=== PATIENT | female | born 1965 | race Two or more races ===

== ENCOUNTER 2017-01-05 16:29 | Emergency (ER) | payer MEDICAID, OTHER ==
[2017-01-05 16:39] VITALS: BP 116/61
[2017-01-05] MEDS ORDERED: Ondansetron 4 MG/2 ML SDV IVPUSH ONE (17:03)
--- NOTE | 2017-01-05 17:04 | EDM.PDOC ---
ED HPI GI/ABDOMINAL - General Chief Complaint: Abdominal Pain Stated Complaint: Fever, abdominal pain Time Seen by Provider: 01/05/17 16:45 Source of Information: Reports: Patient, Old records, RN notes reviewed History Limitations: Reports: No limitations - History of Present Illness INITIAL COMMENTS - FREE TEXT/NARRATIVE: 51 year old female presents to the ED today with complaints of epigastric abdominal pain, nausea, vomiting, and diarrhea. She had several episodes of vomiting last evening. She seemed to feel better this morning until she ate some fruit around 4pm at which time she again became nauseated. She feels feverish and said her temp was 100.6 when she checked it. No one else in the family is sick. No urinary symptoms. She had similar symptoms about 1 week ago which resolved. She has a history of of autoimmune hepatitis and is awaiting a liver transplant list. She is doctoring for this in [place]. She said she had a checkup in [place] this past month and that it went well. She was in our ED in September and subsequently transferred to [place] for a stone in her common bile duct. She says she was able to pass the stone without surgery. She says these symptoms are different than her visit in September. She has chronically low platelets related to her cirrhosis. She's required paracentesis in the past but says her ascites is not bad at this time. - Related Data Allergies/ADRs: Allergies Allergy/AdvReac Type Severity Reaction Status Date / Time acetaminophen [From Vicodin] Allergy Lightheaded Verified 01/05/17 16:39 ness hydrocodone bitartrate Allergy Lightheaded Verified 01/05/17 16:39 [From Vicodin] ness Home Meds: Home Meds Metoprolol Succinate [Toprol XL] 50 mg PO ASDIRECTED 11/12/15 [History] Furosemide [Lasix] 60 mg PO DAILY 09/14/16 [History] Pantoprazole Sodium [Protonix] 20 mg PO BID 09/14/16 [History] Spironolactone [Aldactone] 150 mg PO DAILY 09/14/16 [History] Past Medical History Cardiovascular History: Reports: Hypertension Other Gastrointestinal History: Cirrhosis?, Ascites Genitourinary History: Reports: Renal calculus, Other (see below) Other Genitourinary History: Cyst behind kidneys 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 - Past Surgical History HEENT Surgical History: Reports: Tonsillectomy Female Surgical History: Reports: section Social & Family History - Tobacco Use Smoking Status *Q: Never Smoker Second Hand Smoke Exposure: No - Recreational Drug Use Recreational Drug Use: No - Living Situation & Occupation Living situation: Reports: Occupation: unemployed ED ROS GENERAL - Review of Systems Review Of Systems: See Below Constitutional: Reports: fever, chills Respiratory: Reports: No Symptoms. Denies: Shortness of Breath, Cough, Sputum Cardiovascular: Reports: No symptoms. Denies: Blood pressure problem, Edema GI/Abdominal: Reports: Abdominal pain, Diarrhea, Nausea, Vomiting. Denies: Black stool, Bloody stool, Hematochezia : Reports: no symptoms. Denies: dysuria, flank pain, frequency Neurological: Reports: No Symptoms. Denies: Dizziness, Headache ED EXAM, GI/ABD - Physical Exam Exam: See Below Exam Limited By: No limitations General Appearance: alert, WD/WN, no apparent distress Respiratory/Chest: no respiratory distress, lungs clear, normal breath sounds, no accessory muscle use, chest non-tender Cardiovascular: normal peripheral pulses, regular rate, rhythm, no murmur GI/Abdominal: normal bowel sounds, soft, no organomegaly, no distention, tenderness (mild to epigastric region). No: guarding, rebound, rigidity Back Exam: normal inspection, full range of motion. No: CVA tenderness (L), CVA tenderness (R) Neurological: alert, oriented, normal cognition Skin Exam: Warm, Dry, Intact Course - Vital Signs Last Recorded V/S: Last Vital Signs Temp 99.1 F 01/05/17 16:35 Pulse 105 H 01/05/17 16:35 Resp 18 01/05/17 16:35 BP 116/61 01/05/17 16:35 Pulse Ox 96 01/05/17 16:35 - Orders/Labs/Meds Orders: Active Orders 24 hr Category Date Time Status Peripheral IV Care [RC] . DIRECTED Care 01/05/17 17:03 Active CULTURE BLOOD [BC] Stat Lab 01/05/17 21:21 Ordered CULTURE BLOOD [BC] Stat Lab 01/05/17 21:21 Ordered CULTURE URINE [RM] Stat Lab 01/05/17 17:18 Received HYDROmorphone [Dilaudid] Med 01/05/17 21:36 Once 0.5 mg IVPUSH ONETIME ONE Sodium Chloride 0.9% [Normal Saline] 100 ml Med 01/05/17 19:30 Active IV ASDIRECTED Sodium Chloride 0.9% [Saline Flush] Med 01/05/17 17:03 Active 10 ml FLUSH ASDIRECTED PRN cefTRIAXone [Rocephin] 1 gm Med 01/05/17 21:36 Ordered Sodium Chloride 0.9% [Normal Saline] 100 ml IV ONETIME Blood Culture x2 Reflex Set [OM.PC] Stat Oth 01/05/17 21:21 Ordered Peripheral IV Insertion Adult [OM.PC] Stat Oth 01/05/17 17:03 Ordered Medication Orders Sodium Chloride (Normal Saline) 100 mls @ 60 mls/hr IV ASDIRECTED LAURA Sodium Chloride (Saline Flush) 10 ml FLUSH ASDIRECTED PRN PRN Reason: Keep Vein Open Last Admin: 01/05/17 20:23 Dose: 10 ml Admin: 01/05/17 17:13 Dose: 10 ml Labs: Laboratory Tests 01/05/17 01/05/17 01/05/17 Range/Units 17:05 17:05 17:05 WBC 12.98 H (3.98-10.04) K/mm3 RBC 3.34 L (3.98-5.22) M/mm3 Hgb 11.6 (11.2-15.7) gm/L Hct 33.4 L (34.1-44.9) % MCV 100.0 H (79.4-94.8) fl MCH 34.7 H (25.6-32.2) pg MCHC 34.7 (32.2-35.5) g/dl RDW Std Deviation 47.1 H (36.4-46.3) fL Plt Count 45 L (182-369) K/mm3 MPV 11.2 (9.4-12.3) fl Neutrophils % (Manual) 84 H (40-60) % Band Neutrophils % 0 (0-10) % Lymphocytes % (Manual) 9 L (20-40) % Atypical Lymphs % 0 % Monocytes % (Manual) 7 (2-10) % Eosinophils % (Manual) 0 L (0.7-5.8) % Basophils % (Manual) 0 L (0.1-1.2) Toxic Granulation 2+ moderate Platelet Estimate Marked dec Plt Morphology Comment Normal Polychromasia 1+ slight Poikilocytosis 1+ slight Anisocytosis 1+ slight Microcytosis 1+ slight Macrocytosis 1+ slight Tear Drop Cells 1+ slight RBC Morph Comment Abnormal Sodium 129 L (136-145) mEq/L Potassium 4.3 (3.5-5.1) mEq/L Chloride 97 L (98-107) mEq/L Carbon Dioxide 24 (21-32) mEq/L Anion Gap 12.3 (5-15) BUN 14 (7-18) mg/dL Creatinine 1.4 H (0.55-1.02) mg/dL Est Cr Clr Drug Dosing 36.28 mL/min Estimated GFR (MDRD) 40 (>60) mL/min BUN/Creatinine Ratio 10.0 L (14-18) Glucose 391 H (74-106) mg/dL Calcium 8.4 L (8.5-10.1) mg/dL Total Bilirubin 3.5 H (0.2-1.0) mg/dL GGT (5-55) U/L AST 54 H (15-37) U/L ALT 32 (14-59) U/L Alkaline Phosphatase 305 H (46-116) U/L C-Reactive Protein 1.7 H* (<1.0) mg/dL Total Protein 6.9 (6.4-8.2) g/dl Albumin 2.3 L (3.4-5.0) g/dl Globulin 4.6 gm/dL Albumin/Globulin Ratio 0.5 L (1-2) Lipase 348 (73-393) U/L Urine Color (Yellow) Urine Appearance (Clear) Urine pH (5.0-8.0) Ur Specific Prosser (1.005-1.030) Urine Protein (Negative) Urine Glucose (UA) (Negative) Urine Ketones (Negative) Urine Occult Blood (Negative) Urine Nitrite (Negative) Urine Bilirubin (Negative) Urine Urobilinogen (0.2-1.0) Ur Leukocyte Esterase (Negative) Urine RBC (0-5) /hpf Urine WBC (0-5) /hpf Urine WBC Clumps (NOT SEEN) /hpf Ur Epithelial Cells (0-5) /hpf Urine Bacteria (FEW) /hpf Hyaline Casts (0-5) /lpf Urine Mucus (FEW) /hpf 01/05/17 01/05/17 Range/Units 17:05 17:18 WBC (3.98-10.04) K/mm3 RBC (3.98-5.22) M/mm3 Hgb (11.2-15.7) gm/L Hct (34.1-44.9) % MCV (79.4-94.8) fl MCH (25.6-32.2) pg MCHC (32.2-35.5) g/dl RDW Std Deviation (36.4-46.3) fL Plt Count (182-369) K/mm3 MPV (9.4-12.3) fl Neutrophils % (Manual) (40-60) % Band Neutrophils % (0-10) % Lymphocytes % (Manual) (20-40) % Atypical Lymphs % % Monocytes % (Manual) (2-10) % Eosinophils % (Manual) (0.7-5.8) % Basophils % (Manual) (0.1-1.2) Toxic Granulation Platelet Estimate Plt Morphology Comment Polychromasia Poikilocytosis Anisocytosis Microcytosis Macrocytosis Tear Drop Cells RBC Morph Comment Sodium (136-145) mEq/L Potassium (3.5-5.1) mEq/L Chloride (98-107) mEq/L Carbon Dioxide (21-32) mEq/L Anion Gap (5-15) BUN (7-18) mg/dL Creatinine (0.55-1.02) mg/dL Est Cr Clr Drug Dosing mL/min Estimated GFR (MDRD) (>60) mL/min BUN/Creatinine Ratio (14-18) Glucose (74-106) mg/dL Calcium (8.5-10.1) mg/dL Total Bilirubin (0.2-1.0) mg/dL GGT 97 H (5-55) U/L AST (15-37) U/L ALT (14-59) U/L Alkaline Phosphatase (46-116) U/L C-Reactive Protein (<1.0) mg/dL Total Protein (6.4-8.2) g/dl Albumin (3.4-5.0) g/dl Globulin gm/dL Albumin/Globulin Ratio (1-2) Lipase (73-393) U/L Urine Color Yellow (Yellow) Urine Appearance Slt cloudy H (Clear) Urine pH 5.5 (5.0-8.0) Ur Specific Prosser 1.020 (1.005-1.030) Urine Protein Negative (Negative) Urine Glucose (UA) 2+ H (Negative) Urine Ketones Negative (Negative) Urine Occult Blood Trace-lysed H (Negative) Urine Nitrite Negative (Negative) Urine Bilirubin Negative (Negative) Urine Urobilinogen 0.2 (0.2-1.0) Ur Leukocyte Esterase Trace H (Negative) Urine RBC 0-5 (0-5) /hpf Urine WBC 5-10 H (0-5) /hpf Urine WBC Clumps Rare (NOT SEEN) /hpf Ur Epithelial Cells 5-10 H (0-5) /hpf Urine Bacteria Few (FEW) /hpf Hyaline Casts 0-5 (0-5) /lpf Urine Mucus Few (FEW) /hpf Meds: Medications Generic Name Dose Route Start Last Admin Trade Name Freq PRN Reason Stop Dose Admin Sodium Chloride 100 mls @ 60 mls/hr 01/05/17 19:30 Normal Saline IV ASDIRECTED LAURA Sodium Chloride 10 ml 01/05/17 17:03 01/05/17 20:23 Saline Flush FLUSH 10 ml ASDIRECTED PRN Administration Keep Vein Open Discontinued Medications Generic Name Dose Route Start Last Admin Trade Name Freq PRN Reason Stop Dose Admin Diatrizoate Meglum/Diatrizoate Sod 90 ml 01/05/17 19:20 01/05/17 20:23 Gastrografin 37% PO 01/05/17 19:21 90 ml ONETIME ONE Administration Hydromorphone HCl 0.5 mg 01/05/17 18:04 01/05/17 18:19 Dilaudid IVPUSH 01/05/17 18:05 0.5 mg ONETIME ONE Administration Hydromorphone HCl 0.5 mg 01/05/17 19:53 01/05/17 19:57 Dilaudid IVPUSH 01/05/17 19:54 0.5 mg ONETIME ONE Administration Sodium Chloride 500 mls @ 999 mls/hr 01/05/17 17:58 01/05/17 18:18 Normal Saline IV 01/05/17 18:28 999 mls/hr ONETIME ONE Administration Levofloxacin/Dextrose 500 mg/ 100 mls @ 100 mls/hr 01/05/17 21:22 Premix IV 01/05/17 22:21 ONETIME ONE Iopamidol 100 ml 01/05/17 19:20 01/05/17 20:23 Isovue-370 (76%) IVPUSH 01/05/17 19:21 100 ml ONETIME ONE Administration Ondansetron HCl 4 mg 01/05/17 17:03 01/05/17 17:12 Zofran IVPUSH 01/05/17 17:04 4 mg ONETIME ONE Administration - Re-Assessments/Exams Free Text/Narrative Re-Assessment/Exam: CBC reveals elevated WBC at nearly 13,000 with normal differential. CRP is elevated at 1.7. CMP reveals sodium of 129, creatinine 1.4, alk phos 305, bilirubin is 3.5. GGT is elevated at 97. UA is positive for infection. Urine and blood cultures ordered. CT of abdomen/pelvis read by Dr. Gray, impression: 1. Cirrhotic change within the liver 2. Cystic lesion within the head of the pancreas with surrounding low density. Currently appears to represent a cystic mass within the pancreas. Difficult to exclude pancreatic carcinoma. Please see full report Discussed with Dr. Diggs. Concern for ascending cholangitis. Spoke to [facility], where she was admitted in September for the same problem. Hospitalist Dr. Torres accepted care of patient. She will be a direct admit. Patient notified of the above findings and plan of care. She is agreeable to plan. She was offered ambulance transfer however she refused and would prefer to go via private vehicle. Will give 1 gram of Rocephin prior to departure. Departure - Departure Time of Disposition: 21:42 Disposition: DC/Tfer to Acute Hospital 02 Condition: fair Clinical Impression: Pancreatic cyst, Epigastric pain Cirrhosis of liver Qualifiers: Hepatic cirrhosis type: unspecified hepatic cirrhosis Ascites presence: with ascites Qualified Code(s): K74.60 - Unspecified cirrhosis of liver Forms: ED Department Discharge Additional Instructions: Go directly to [facility] You will be a direct admit for Dr. Torres Nothing to eat or drink No driving due to sedating medications given in the ED. - My Orders Last 24 Hours: My Active Orders 01/05/17 17:03 Peripheral IV Care [RC] . DIRECTED Sodium Chloride 0.9% [Saline Flush] 10 ml FLUSH ASDIRECTED PRN Peripheral IV Insertion Adult [OM.PC] Stat 01/05/17 17:18 CULTURE URINE [RM] Stat 01/05/17 19:30 Sodium Chloride 0.9% [Normal Saline] 100 ml IV ASDIRECTED 01/05/17 21:21 CULTURE BLOOD [BC] Stat CULTURE BLOOD [BC] Stat Blood Culture x2 Reflex Set [OM.PC] Stat 01/05/17 21:36 HYDROmorphone [Dilaudid] 0.5 mg IVPUSH ONETIME ONE cefTRIAXone [Rocephin] 1 gm Sodium Chloride 0.9% [Normal Saline] 100 ml IV ONETIME - Assessment/Plan Last 24 Hours: My Active Orders 01/05/17 17:03 Peripheral IV Care [RC] . DIRECTED Sodium Chloride 0.9% [Saline Flush] 10 ml FLUSH ASDIRECTED PRN Peripheral IV Insertion Adult [OM.PC] Stat 01/05/17 17:18 CULTURE URINE [RM] Stat 01/05/17 19:30 Sodium Chloride 0.9% [Normal Saline] 100 ml IV ASDIRECTED 01/05/17 21:21 CULTURE BLOOD [BC] Stat CULTURE BLOOD [BC] Stat Blood Culture x2 Reflex Set [OM.PC] Stat 01/05/17 21:36 HYDROmorphone [Dilaudid] 0.5 mg IVPUSH ONETIME ONE cefTRIAXone [Rocephin] 1 gm Sodium Chloride 0.9% [Normal Saline] 100 ml IV ONETIME
[2017-01-05] MEDS: Sodium Chloride 0.9% 10 ML Syringe FLUSH PRN ×2 (17:13→20:23)
[2017-01-05] MEDS ORDERED: Sodium Chloride 0.9% 500 ML IV ONE (17:58)
[2017-01-05] MEDS ORDERED: HYDROmorphone 0.5 MG/0.5 ML Syringe IVPUSH ONE ×3 (18:04→21:36)
[2017-01-05] MEDS ORDERED: Iopamidol 755 Mg/ML 100 ML Bottle IVPUSH ONE (19:20)
[2017-01-05] MEDS ORDERED: Diatrizoate Meglumine/Diatrizoate Sodium 37% 120 ML Bottle PO ONE (19:20)
[2017-01-05] MEDS ORDERED: Sodium Chloride 0.9% 100 ML IV SCH (19:30)
--- NOTE | 2017-01-05 21:09 | CT ---
CT abdomen and pelvis Technique: Multiple axial sections were obtained from above the dome of the diaphragm inferiorly to the pubic symphysis. Intravenous and oral contrast was utilized. Comparison: Previous CT abdomen and pelvis exams of 09/14/16 and 11/12/15. Findings: Cystic area is seen within the head of the pancreas. This finding measures approximately 2.1 cm. This was previously thought to represent a dilated common bile duct although on current exam this appears more as a cystic pancreatic mass. Vague low density is seen around this area within the pancreatic head. Pancreas is otherwise unremarkable. No pancreatic duct dilatation is seen. Calcified gallstones are seen within the gallbladder. Visualized lung bases are clear. Calcification is identified within the right lobe of the liver which appears stable. Liver is small in size and shows a slightly nodular contour which is suspicious for cirrhosis which is a stable finding. Spleen appears within normal limits. Small hiatal hernia is seen. Cyst identified within the right kidney which measures 5.2 cm in size. No additional abnormality is seen within the kidneys. Aorta shows no aneurysmal dilatation. Small fat-containing umbilical hernia is seen. No pelvic mass or adenopathy is noted. No retroperitoneal adenopathy or mesenteric abnormalities are seen. Contrast-filled small bowel appears slightly prominent in size which may relate to hypertonic effect of the contrast. No free fluid or inflammatory change is appreciated. Slight increased density within the right paracolic gutter is seen which appears stable from prior exam presumably due to scarring. Impression: 1. Cirrhotic change within the liver which is stable from prior exam. 2. Cystic lesion within the head of the pancreas with surrounding low density. As mentioned above, this was felt to represent a dilated CBD on prior CT study but this currently appears to represent a cystic mass within the pancreas. As mentioned on earliest CT study difficult to exclude a pancreatic carcinoma although given that this finding is stable from prior study of 11/12/15 this may represent a low-grade or benign lesion. Continued follow-up recommended in 6 months. Follow-up study should include contrast both IV and oral. 3. Calcified gallstones which are stable from prior exam. 4. Other incidental findings. Nothing acute is definitely appreciated on CT study of the abdomen and pelvis. Diagnostic code #9
[2017-01-05] MEDS ORDERED: Levofloxacin/Dextrose 5%-Water 500 MG in Premix Bag 1 BAG IV ONE (21:22)
[2017-01-05] MEDS ORDERED: cefTRIAXone 1 GM in Sodium Chloride 0.9% 100 ML IV ONE (21:36)
== END 2017-01-05 22:25 ==
LOC: JD.ED 16:29
DX: K86.2 Cyst of pancreas (principal); K74.60 Unspecified cirrhosis of liver; Z88.5 Allergy status to narcotic agent; Z88.8 Allergy status to other drugs, medicaments and biological substances; Z79.899 Other long term (current) drug therapy
CPT/HCPCS: 36415; 74177; 80053; 81001; 82977; 83690; 85025; 86140; 87040; 87086; 96361; 96365; 96375; 96376; 99285; J0696; J1170; J2405; J7030; J7040; J7050; Q9963; Q9967; 87077; 87184; 99284

== ENCOUNTER 2017-05-02 23:30 | Emergency (ER) | payer MEDICAID ==
[2017-05-03] MEDS ORDERED: Ondansetron 4 MG Tab.DIS PO ONE (00:21)
--- NOTE | 2017-05-03 00:26 | EDM.PDOC ---
ED HPI GENERAL MEDICAL PROBLEM - General Chief Complaint: Abdominal Pain Stated Complaint: BLOATING/ON LIVER TRANSPLANT LIST Time Seen by Provider: 05/02/17 23:58 Source of Information: Reports: Patient History Limitations: Reports: No Limitations - History of Present Illness INITIAL COMMENTS - FREE TEXT/NARRATIVE: This is a 51-year-old female. She has a history of liver cirrhosis with ascites. She is on the transplant list and her son is going to be the donor and she anticipates she is going to get a liver transplant in the next several months. She was recently in [place] visiting her son and just got back 1 week ago. She was in the hospital in [place] due to overusing her medications and becoming dehydrated. She says she is nauseated over the last 3 days and doesn't seem to be able to keep anything down. Today she was vomiting she felt a sharp pain in her abdomen like something was tearing and she comes to the ER for evaluation since it hasn't stopped. She denies any fever or chills. She denies any diarrhea. She has had fluid taken off her abdomen in [place] as well as in [place]. She says her abdomen is tender but it does not appear to be distended though it is full. Patient also has a history of gallstones. Patient states that her liver cirrhosis is due to an autoimmune problem. Bilateral Abdomen Pain Score (Numeric/FACES): 9 - Related Data Allergies Allergy/AdvReac Type Severity Reaction Status Date / Time acetaminophen [From Vicodin] Allergy Lightheaded Verified 05/02/17 23:46 ness hydrocodone bitartrate Allergy Lightheaded Verified 05/02/17 23:46 [From Vicodin] ness Home Meds: Home Meds Furosemide [Lasix] 60 mg PO DAILY 09/14/16 [History] Spironolactone [Aldactone] 150 mg PO DAILY 09/14/16 [History] Ciprofloxacin [Ciprofloxacin HCl] 500 mg PO BID 05/02/17 [History] L. 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 - Past Surgical History HEENT Surgical History: Reports: Tonsillectomy Female Surgical History: Reports: Section Social & Family History - Tobacco Use Smoking Status *Q: Never Smoker Second Hand Smoke Exposure: No - Caffeine Use Caffeine Use: Reports: None - Recreational Drug Use Recreational Drug Use: No - Living Situation & Occupation Living situation: Reports: Occupation: Unemployed ED ROS GENERAL - Review of Systems Review Of Systems: See Below Constitutional: Reports: Malaise. Denies: Fever, Chills HEENT: Reports: No Symptoms Respiratory: Reports: No Symptoms Cardiovascular: Reports: No Symptoms Endocrine: Reports: No Symptoms GI/Abdominal: Reports: Abdominal Pain, Anorexia, Nausea, Vomiting. Denies: Diarrhea : Reports: No Symptoms Musculoskeletal: Reports: No Symptoms Skin: Reports: No Symptoms Neurological: Reports: No Symptoms Psychiatric: Reports: No Symptoms Hematologic/Lymphatic: Reports: No Symptoms Immunologic: Reports: No Symptoms ED EXAM, GI/ABD - Physical Exam Exam: See Below Exam Limited By: No Limitations General Appearance: Alert, WD/WN, No Apparent Distress Eyes: Bilateral: Normal Appearance (Slight jaundice) Ears: Normal External Exam Nose: Normal Inspection Throat/Mouth: Normal Inspection, Normal Lips, Normal Voice Head: Normocephalic Neck: Supple Respiratory/Chest: No Respiratory Distress, Lungs Clear, Normal Breath Sounds Cardiovascular: Regular Rate, Rhythm, No Murmur GI/Abdominal Exam: Other (Abdomen is full but it is not distended or tight, she does have a splash felt, palpation of her abdomen is tender but there is no rigidity there is no rebound there is no significant guarding, she says her abdomen hurts all over not just in the right upper quadrant) Back Exam: Full Range of Motion Extremities: Normal Inspection, Normal Range of Motion, No Pedal Edema Neurological: Alert, Oriented Psychiatric: Normal Affect, Normal Mood Skin Exam: Warm, Dry Course - Vital Signs Last Recorded V/S: Last Vital Signs Temp 97.8 F 05/02/17 23:40 Pulse 102 H 05/02/17 23:40 Resp 16 05/02/17 23:40 BP 136/86 05/02/17 23:40 Pulse Ox 100 05/02/17 23:40 - Orders/Labs/Meds Labs: Laboratory Tests 05/03/17 05/03/17 Range/Units 00:44 00:44 WBC 6.81 (3.98-10.04) K/mm3 RBC 2.87 L (3.98-5.22) M/mm3 Hgb 10.0 L (11.2-15.7) gm/L Hct 29.4 L (34.1-44.9) % MCV 102.4 H (79.4-94.8) fl MCH 34.8 H (25.6-32.2) pg MCHC 34.0 (32.2-35.5) g/dl RDW Std Deviation 51.6 H (36.4-46.3) fL Plt Count 61 L (182-369) K/mm3 MPV 10.5 (9.4-12.3) fl Neut % (Auto) 53.4 (34.0-71.1) % Lymph % (Auto) 24.8 (19.3-51.7) % Hardin % (Auto) 18.9 H (4.7-12.5) % Eos % (Auto) 1.9 (0.7-5.8) Baso % (Auto) 0.6 (0.1-1.2) % Neut # (Auto) 3.63 (1.56-6.13) K/mm3 Lymph # (Auto) 1.69 (1.18-3.74) K/mm3 Hardin # (Auto) 1.29 H (0.24-0.36) K/mm3 Eos # (Auto) 0.13 (0.04-0.36) K/mm3 Baso # (Auto) 0.04 (0.01-0.08) K/mm3 Manual Slide Review Abnormal smear Sodium 132 L (136-145) mEq/L Potassium 3.8 (3.5-5.1) mEq/L Chloride 100 (98-107) mEq/L Carbon Dioxide 24 (21-32) mEq/L Anion Gap 11.8 (5-15) BUN 7 (7-18) mg/dL Creatinine 0.9 (0.55-1.02) mg/dL Est Cr Clr Drug Dosing 56.43 mL/min Estimated GFR (MDRD) > 60 (>60) mL/min BUN/Creatinine Ratio 7.8 L (14-18) Glucose 125 H (74-106) mg/dL Calcium 8.4 L (8.5-10.1) mg/dL Total Bilirubin 3.9 H (0.2-1.0) mg/dL AST 76 H (15-37) U/L ALT 41 (14-59) U/L Alkaline Phosphatase 191 H (46-116) U/L C-Reactive Protein 1.1 H* (<1.0) mg/dL Total Protein 6.4 (6.4-8.2) g/dl Albumin 2.6 L (3.4-5.0) g/dl Globulin 3.8 gm/dL Albumin/Globulin Ratio 0.7 L (1-2) Meds: Medications Discontinued Medications Generic Name Dose Route Start Last Admin Trade Name Freq PRN Reason Stop Dose Admin Hydromorphone HCl 1 mg 05/03/17 01:30 Dilaudid IM 05/03/17 01:31 ONETIME ONE Ondansetron HCl 4 mg 05/03/17 00:21 05/03/17 00:30 Zofran Odt PO 05/03/17 00:22 4 mg ONETIME ONE Administration - Re-Assessments/Exams Free Text/Narrative Re-Assessment/Exam: 05/03/17 01:38 I spoke to the patient regarding her test results. I will not provide Dilaudid by mouth for her but she can take her tramadol for the pain. I counseled her regarding not eating foods that irritate her gallbladder. Departure - Departure Time of Disposition: 01:39 Disposition: Home, Self-Care 01 Condition: Poor Clinical Impression: Liver disease, chronic, with cirrhosis, Thrombocytopenia Ascites Qualifiers: Ascites type: other type Qualified Code(s): R18.8 - Other ascites Cholelithiasis Qualifiers: Cholelithiasis location: gallbladder Cholecystitis presence: without cholecystitis Biliary obstruction: without biliary obstruction Qualified Code(s) : K80.20 - Calculus of gallbladder without cholecystitis without obstruction Anemia Qualifiers: Anemia type: unspecified type Qualified Code(s): D64.9 - Anemia, unspecified Abdominal pain Qualifiers: Abdominal location: generalized Qualified Code(s): R10.84 - Generalized abdominal pain - Discharge Information Referrals: Amanda Rodriguez DO [Primary Care Provider] - Forms: ED Department Discharge Additional Instructions: Continue with your normal medications at home, use the Zofran and the tramadol as needed for pain, to help prevent the gallbladder from bothering you avoid any oily and greasy or fried foods since they irritate the gallbladder, follow- up with your family doctor this week as scheduled, return to the ER if needed
[2017-05-03] MEDS ORDERED: HYDROmorphone 1 MG/ML Syringe IM ONE (01:30)
[2017-05-03 02:08] VITALS: BP 121/75
== END 2017-05-03 02:00 | disposition home or self-care (01) ==
LOC: JD.ED 23:30
DX: R18.8 Other ascites (principal); K74.60 Unspecified cirrhosis of liver; D69.6 Thrombocytopenia, unspecified; K80.20 Calculus of gallbladder without cholecystitis without obstruction; D64.9 Anemia, unspecified; R10.84 Generalized abdominal pain; I10 Essential (primary) hypertension; F32.9 Major depressive disorder, single episode, unspecified; Z98.890 Other specified postprocedural states; Z79.899 Other long term (current) drug therapy; Z88.6 Allergy status to analgesic agent; Z88.5 Allergy status to narcotic agent; Z87.442 Personal history of urinary calculi
CPT/HCPCS: 36415; 80053; 85025; 86140; 96372; 99284; A9270; J1170; 99283

== ENCOUNTER 2017-05-11 20:23 | Emergency (ER) | payer MEDICAID ==
[2017-05-11 20:57] VITALS: BP 131/90
[2017-05-11] MEDS ORDERED: Ondansetron 4 MG/2 ML SDV IVPUSH ONE (21:16)
[2017-05-11] MEDS ORDERED: HYDROmorphone 1 MG/ML Syringe IVPUSH ONE (21:18)
[2017-05-11] MEDS: Sodium Chloride 0.9% 10 ML Syringe FLUSH PRN ×2 (21:20→21:24)
[2017-05-11] MEDS ORDERED: Sodium Chloride 0.9% 1,000 ML IV SCH (21:30)
[2017-05-11] MEDS ORDERED: Iopamidol 612 MG/ML 150 ML Bottle IVPUSH ONE (21:40)
[2017-05-11] MEDS ORDERED: Sodium Chloride 0.9% 10 ML Syringe FLUSH PRN (21:40)
[2017-05-11] MEDS ORDERED: Lidocaine 1% with EPINEPHrine 1:100,000 20 ML MDV INJECT ONE (22:10)
[2017-05-12] MEDS ORDERED: HYDROmorphone 0.5 MG/0.5 ML Syringe IVPUSH ONE (00:27)
[2017-05-12] MEDS ORDERED: Ondansetron 4 MG/2 ML SDV IVPUSH ONE (00:41)
--- NOTE | 2017-05-12 00:49 | EDM.PDOC ---
ED HPI GENERAL MEDICAL PROBLEM - General Chief Complaint: Abdominal Pain Stated Complaint: KAMLA TOOK FLUID OUT OF STOMACH Time Seen by Provider: 05/11/17 20:44 Source of Information: Reports: Patient, Family History Limitations: Reports: No Limitations - History of Present Illness INITIAL COMMENTS - FREE TEXT/NARRATIVE: The patient presents with generalized abdominal pain, nausea, vomiting and abdominal distension. This has been going on for a few days. 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 She tells me that her doctors in [place] are getting ready to do a liver transplant with her son as the donor. She had a paracentesis [address] Mad[place]. According to the patient she had about 1L of fluid out. The procedure was more painful then normal. She did have some bleeding from the site when she came in. She denies fever, chills, and chest pain but she does have some shortness of breath. Onset: Gradual Duration: Day(s): Location: Reports: Abdomen Quality: Reports: Sharp Severity: Moderate Improves with: Reports: None Worsens with: Reports: None Associated Symptoms: Reports: Nausea/Vomiting, Shortness of Breath. 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 - Past Surgical History HEENT Surgical History: Reports: Tonsillectomy Female Surgical History: Reports: Section Social & Family History - Tobacco Use Smoking Status *Q: Never Smoker Second Hand Smoke Exposure: No - Caffeine Use Caffeine Use: Reports: None - Recreational Drug Use Recreational Drug Use: No - Living Situation & Occupation Living situation: Reports: Occupation: Unemployed ED ROS GENERAL - Review of Systems Review Of Systems: See Below Constitutional: Reports: No Symptoms HEENT: Reports: No Symptoms Respiratory: Reports: Shortness of Breath Cardiovascular: Reports: No Symptoms Endocrine: Reports: No Symptoms GI/Abdominal: Reports: Abdominal Pain, Nausea, Vomiting : Reports: No Symptoms Musculoskeletal: Reports: No Symptoms Skin: Reports: No Symptoms ED EXAM, GI/ABD - Physical Exam Exam: See Below Exam Limited By: Intoxication General Appearance: Alert, No Apparent Distress Eyes: Bilateral: Normal Appearance (Except scleral ictirus) Ears: Normal External Exam Nose: Normal Inspection Throat/Mouth: Normal Inspection Head: Atraumatic, Normocephalic Neck: Normal Inspection Respiratory/Chest: No Respiratory Distress, Lungs Clear, Normal Breath Sounds Cardiovascular: Regular Rate, Rhythm, No Murmur GI/Abdominal Exam: Soft, No Organomegaly, No Mass, Distended, Tender (Moderate generalized tenderness), Other (Ecchymosis to the left lateral abdomen) Back Exam: Normal Inspection Extremities: Normal Inspection Course - Vital Signs Last Recorded V/S: Last Vital Signs Temp 98.2 F 05/11/17 20:55 Pulse 110 H 05/11/17 20:55 Resp 20 05/11/17 20:55 BP 131/90 05/11/17 20:55 Pulse Ox 96 05/11/17 20:55 - Orders/Labs/Meds Orders: Active Orders 24 hr Category Date Time Status Peripheral IV Care [RC] . DIRECTED Care 05/11/17 21:17 Active Abdomen Pelvis w Cont [CT] Stat Exams 05/11/17 21:16 Taken Sodium Chloride 0.9% [Normal Saline] 1,000 ml Med 05/11/17 21:30 Active IV ASDIRECTED Sodium Chloride 0.9% [Saline Flush] Med 05/11/17 21:16 Active 10 ml FLUSH ASDIRECTED PRN Sodium Chloride 0.9% [Saline Flush] Med 05/11/17 21:40 Active 10 ml FLUSH ONETIME PRN ED Antiemetic Medication Reflex [OM.PC] Stat Oth 05/11/17 21:17 Ordered Peripheral IV Insertion Adult [OM.PC] Stat Ot 05/11/17 21:16 Ordered Medication Orders Sodium Chloride (Normal Saline) 1,000 mls @ 125 mls/hr IV ASDIRECTED LAURA Last Admin: 05/11/17 21:25 Dose: 125 mls/hr Sodium Chloride (Saline Flush) 10 ml FLUSH ASDIRECTED PRN PRN Reason: Keep Vein Open Last Admin: 05/11/17 21:24 Dose: 10 ml Admin: 05/11/17 21:20 Dose: 10 ml Sodium Chloride (Saline Flush) 10 ml FLUSH ONETIME PRN PRN Reason: IV FLUSH Last Admin: 05/11/17 22:00 Dose: 10 ml Labs: Laboratory Tests 05/11/17 05/11/17 05/11/17 Range/Units 21:20 21:20 21:20 WBC 8.43 (3.98-10.04) K/mm3 RBC 3.26 L (3.98-5.22) M/mm3 Hgb 11.3 (11.2-15.7) gm/L Hct 32.8 L (34.1-44.9) % MCV 100.6 H (79.4-94.8) fl MCH 34.7 H (25.6-32.2) pg MCHC 34.5 (32.2-35.5) g/dl RDW Std Deviation 45.4 (36.4-46.3) fL Plt Count 53 L (182-369) K/mm3 MPV 11.0 (9.4-12.3) fl Neut % (Auto) 66.2 (34.0-71.1) % Lymph % (Auto) 18.1 L (19.3-51.7) % [place] % (Auto) 14.0 H (4.7-12.5) % Eos % (Auto) 0.8 (0.7-5.8) Baso % (Auto) 0.5 (0.1-1.2) % Neut # (Auto) 5.58 (1.56-6.13) K/mm3 Lymph # (Auto) 1.53 (1.18-3.74) K/mm3 [place] # (Auto) 1.18 H (0.24-0.36) K/mm3 Eos # (Auto) 0.07 (0.04-0.36) K/mm3 Baso # (Auto) 0.04 (0.01-0.08) K/mm3 Manual Slide Review Abnormal smear PT 18.1 H (8.0-13.0) SECONDS INR 1.61 Sodium 132 L (136-145) mEq/L Potassium 4.2 (3.5-5.1) mEq/L Chloride 98 (98-107) mEq/L Carbon Dioxide 24 (21-32) mEq/L Anion Gap 14.2 (5-15) BUN 8 (7-18) mg/dL Creatinine 1.1 H (0.55-1.02) mg/dL Est Cr Clr Drug Dosing 46.17 mL/min Estimated GFR (MDRD) 53 (>60) mL/min BUN/Creatinine Ratio 7.3 L (14-18) Glucose 170 H (74-106) mg/dL Calcium 8.9 (8.5-10.1) mg/dL Total Bilirubin 3.9 H (0.2-1.0) mg/dL AST 99 H (15-37) U/L ALT 43 (14-59) U/L Alkaline Phosphatase 197 H (46-116) U/L Total Protein 6.7 (6.4-8.2) g/dl Albumin 2.7 L (3.4-5.0) g/dl Globulin 4.0 gm/dL Albumin/Globulin Ratio 0.7 L (1-2) Lipase 575 H (73-393) U/L Urine Color (Yellow) Urine Appearance (Clear) Urine pH (5.0-8.0) Ur Specific Ong (1.005-1.030) Urine Protein (Negative) Urine Glucose (UA) (Negative) Urine Ketones (Negative) Urine Occult Blood (Negative) Urine Nitrite (Negative) Urine Bilirubin (Negative) Urine Urobilinogen (0.2-1.0) Ur Leukocyte Esterase (Negative) Urine RBC (0-5) /hpf Urine WBC (0-5) /hpf Ur Epithelial Cells (0-5) /hpf Ur Transition Epith Cell (0-5) Ur Renal Epithelial Cell (0-5) /hpf Calcium Oxalate Crystal (NONE) Urine Bacteria (FEW) /hpf Hyaline Casts (0-5) /lpf Urine Mucus (FEW) /hpf 05/11/17 Range/Units 21:49 WBC (3.98-10.04) K/mm3 RBC (3.98-5.22) M/mm3 Hgb (11.2-15.7) gm/L Hct (34.1-44.9) % MCV (79.4-94.8) fl MCH (25.6-32.2) pg MCHC (32.2-35.5) g/dl RDW Std Deviation (36.4-46.3) fL Plt Count (182-369) K/mm3 MPV (9.4-12.3) fl Neut % (Auto) (34.0-71.1) % Lymph % (Auto) (19.3-51.7) % [place] % (Auto) (4.7-12.5) % Eos % (Auto) (0.7-5.8) Baso % (Auto) (0.1-1.2) % Neut # (Auto) (1.56-6.13) K/mm3 Lymph # (Auto) (1.18-3.74) K/mm3 [place] # (Auto) (0.24-0.36) K/mm3 Eos # (Auto) (0.04-0.36) K/mm3 Baso # (Auto) (0.01-0.08) K/mm3 Manual Slide Review PT (8.0-13.0) SECONDS INR Sodium (136-145) mEq/L Potassium (3.5-5.1) mEq/L Chloride (98-107) mEq/L Carbon Dioxide (21-32) mEq/L Anion Gap (5-15) BUN (7-18) mg/dL Creatinine (0.55-1.02) mg/dL Est Cr Clr Drug Dosing mL/min Estimated GFR (MDRD) (>60) mL/min BUN/Creatinine Ratio (14-18) Glucose (74-106) mg/dL Calcium (8.5-10.1) mg/dL Total Bilirubin (0.2-1.0) mg/dL AST (15-37) U/L ALT (14-59) U/L Alkaline Phosphatase (46-116) U/L Total Protein (6.4-8.2) g/dl Albumin (3.4-5.0) g/dl Globulin gm/dL Albumin/Globulin Ratio (1-2) Lipase (73-393) U/L Urine Color Dark yellow (Yellow) Urine Appearance Slt cloudy H (Clear) Urine pH 5.5 (5.0-8.0) Ur Specific Ong > or = 1.030 (1.005-1.030) Urine Protein 1+ H (Negative) Urine Glucose (UA) Negative (Negative) Urine Ketones Trace H (Negative) Urine Occult Blood Trace-intact H (Negative) Urine Nitrite Negative (Negative) Urine Bilirubin 1+ H (Negative) Urine Urobilinogen 1.0 (0.2-1.0) Ur Leukocyte Esterase Trace H (Negative) Urine RBC 0-5 (0-5) /hpf Urine WBC 0-5 (0-5) /hpf Ur Epithelial Cells 20-30 H (0-5) /hpf Ur Transition Epith Cell 5-10 H (0-5) Ur Renal Epithelial Cell 0-5 (0-5) /hpf Calcium Oxalate Crystal Many H (NONE) Urine Bacteria Many H (FEW) /hpf Hyaline Casts 0-5 (0-5) /lpf Urine Mucus Few (FEW) /hpf Meds: Medications Generic Name Dose Route Start Last Admin Trade Name Freq PRN Reason Stop Dose Admin Sodium Chloride 1,000 mls @ 125 mls/hr 05/11/17 21:30 05/11/17 21:25 Normal Saline IV 125 mls/hr ASDIRECTED LAURA Administration Sodium Chloride 10 ml 05/11/17 21:16 05/11/17 21:24 Saline Flush FLUSH 10 ml ASDIRECTED PRN Administration Keep Vein Open Sodium Chloride 10 ml 05/11/17 21:40 05/11/17 22:00 Saline Flush FLUSH 10 ml ONETIME PRN Administration IV FLUSH Discontinued Medications Generic Name Dose Route Start Last Admin Trade Name Freq PRN Reason Stop Dose Admin Hydromorphone HCl 1 mg 05/11/17 21:18 05/11/17 21:25 Dilaudid IVPUSH 05/11/17 21:19 1 mg ONETIME ONE Administration Hydromorphone HCl 0.5 mg 05/12/17 00:27 Dilaudid IVPUSH 05/12/17 00:28 ONETIME ONE Iopamidol 125 ml 05/11/17 21:40 05/11/17 22:00 Isovue-300 (61%) IVPUSH 05/11/17 21:41 125 ml ONETIME ONE Administration Lidocaine/Epinephrine 20 ml 05/11/17 22:10 05/11/17 23:15 Xylocaine 1% With Epinephrine 1:100,000 INJECT 05/11/17 22:11 20 ml ONETIME ONE Administration Ondansetron HCl 4 mg 05/11/17 21:16 05/11/17 21:24 Zofran IVPUSH 05/11/17 21:17 4 mg ONETIME ONE Administration Ondansetron HCl 4 mg 05/12/17 00:41 Zofran IVPUSH 05/12/17 00:42 ONETIME ONE - Re-Assessments/Exams Free Text/Narrative Re-Assessment/Exam: 05/12/17 00:49 I ordered an IV saline lock, labs, and a CT of her abdomen and pelvis. I ordered some zofran and dilaudid. 05/12/17 00:51 Her WBC and Hgb were normal. Her platelets were low at 53. Her INR was elevated at 1.61. Her NA was a little low at 132. Her creatinine was a little elevated at 1.1. Her glucose was 170. Her total bili was 3.9. Her AST was 99 and her ALT was normal. Her Alk Phos was elevated at 197. Her lipase was elevated at 575. Her CT shows large amount of intra-abdominal ascites. Body wall edema. Umbilical hernia. Cirrhotic liver. Cholelithiasis. Pancreatic head cystic area and hypodensity are stable. Right renal cyst. Esophageal verices. Nonspecific gallbadder wall edema, a common finding in patients with ascites and low protein. When she has been here in the past her lipase has not been elevated. I feel she needs to be transfered to [place]. I called [facility] and talked with Dr Diehl and she agreed to the transfer. The family wants to take her by private vehicle. I gave her another dose of dilaudid and zofran before she left. Departure - Departure Time of Disposition: 00:55 Disposition: DC/Tfer to [facility] 02 Clinical Impression: Pancreatic cyst, Liver disease, chronic, with cirrhosis, Thrombocytopenia Ascites Qualifiers: Ascites type: other type Qualified Code(s): R18.8 - Other ascites Cirrhosis of liver Qualifiers: Hepatic cirrhosis type: unspecified hepatic cirrhosis Ascites presence: with ascites Qualified Code(s): K74.60 - Unspecified cirrhosis of liver Cholelithiasis Qualifiers: Cholelithiasis location: gallbladder Cholecystitis presence: without cholecystitis Biliary obstruction: without biliary obstruction Qualified Code(s) : K80.20 - Calculus of gallbladder without cholecystitis without obstruction Abdominal pain Qualifiers: Abdominal location: generalized Qualified Code(s): R10.84 - Generalized abdominal pain Pancreatitis Qualifiers: Chronicity: acute Pancreatitis type: other Acute pancreatitis complication: no infection or necrosis Qualified Code(s): K85.80 - Other acute pancreatitis without necrosis or infection Nausea and vomiting Qualifiers: Vomiting type: unspecified Vomiting Intractability: non-intractable Qualified Code(s): R11.2 - Nausea with vomiting, unspecified - Discharge Information Referrals: Amanda Rodriguez DO [Primary Care Provider] - - My Orders Last 24 Hours: My Active Orders 05/11/17 21:16 Abdomen Pelvis w Cont [CT] Stat Sodium Chloride 0.9% [Saline Flush] 10 ml FLUSH ASDIRECTED PRN Peripheral IV Insertion Adult [OM.PC] Stat 05/11/17 21:17 Peripheral IV Care [RC] . DIRECTED ED Antiemetic Medication Reflex [OM.PC] Stat 05/11/17 21:30 Sodium Chloride 0.9% [Normal Saline] 1,000 ml IV ASDIRECTED 05/11/17 21:40 Sodium Chloride 0.9% [Saline Flush] 10 ml FLUSH ONETIME PRN - Assessment/Plan Last 24 Hours: My Active Orders 05/11/17 21:16 Abdomen Pelvis w Cont [CT] Stat Sodium Chloride 0.9% [Saline Flush] 10 ml FLUSH ASDIRECTED PRN Peripheral IV Insertion Adult [OM.PC] Stat 05/11/17 21:17 Peripheral IV Care [RC] . DIRECTED ED Antiemetic Medication Reflex [OM.PC] Stat 05/11/17 21:30 Sodium Chloride 0.9% [Normal Saline] 1,000 ml IV ASDIRECTED 05/11/17 21:40 Sodium Chloride 0.9% [Saline Flush] 10 ml FLUSH ONETIME PRN
--- NOTE | 2017-05-12 17:59 | CT ---
CT abdomen and pelvis Technique: Multiple axial sections were obtained from above the dome of the diaphragm inferiorly through the pubic symphysis. Intravenous contrast was utilized. No oral contrast has been given. Comparison: Previous CT abdomen and pelvis exam of 01/05/17. Findings: Visualized lung bases show a small stable nodule within the left base. Nothing acute is seen. Small cirrhotic liver is identified. Dystrophic calcification is seen within the liver which is stable. Spleen length measures 12.7 cm which is felt to be stable. Fair amount of ascites is seen throughout the abdomen and pelvis. Cystic area is seen within the pancreas with additional low density region seen next to the cyst. This is stable from previous exam of 09/14/16. Again low-grade pancreatic malignancy remains within the differential. Small hiatal hernia is seen. Adrenal glands show no nodule. Cyst noted within the right kidney measuring approximately 5.1 cm. Kidneys show symmetric contrast enhancement without hydronephrosis or mass. Aorta shows no aneurysmal dilatation. No retroperitoneal adenopathy is seen. Calcified gallstones are present. No mesenteric abnormalities are seen. Umbilical hernia is seen which contains ascitic fluid. No discrete pelvic abnormality is seen. Delayed images show contrast within the distal ureters and within the bladder. Varicosities are identified at the gastroesophageal junction and within the paraesophageal region. Bone window settings were reviewed which show minimal degenerative change within the spine. Impression: 1. Stable cystic mass within the head of the pancreas. Low-grade pancreatic malignancy still remains within the differential. 2. Ascites is identified throughout the abdomen and pelvis which has increased in amount from most recent exam. 3. Stable change of liver cirrhosis. 4. Other findings as noted above are also stable. Diagnostic code #9 I agree with preliminary report issued by [facility] ([facility] preliminary report dictated on 05/11/17, 11:28 PM Central Type)
== END 2017-05-12 01:00 ==
LOC: JD.ED 20:23
DX: S31.119A Laceration without foreign body of abdominal wall, unspecified quadrant without penetration into peritoneal cavity, initial encounter (principal); K86.2 Cyst of pancreas; K74.60 Unspecified cirrhosis of liver; D69.6 Thrombocytopenia, unspecified; K80.20 Calculus of gallbladder without cholecystitis without obstruction; K85.80 Other acute pancreatitis without necrosis or infection; R18.8 Other ascites; I10 Essential (primary) hypertension; F41.9 Anxiety disorder, unspecified; E11.9 Type 2 diabetes mellitus without complications; Z87.442 Personal history of urinary calculi; Z88.6 Allergy status to analgesic agent; Z79.899 Other long term (current) drug therapy; Z98.890 Other specified postprocedural states; X58.XXXA Exposure to other specified factors, initial encounter
CPT/HCPCS: 12001; 36415; 74177; 80053; 81001; 83690; 85025; 85610; 96361; 96374; 96375; 96376; 99285; J1170; J2405; J7040; J7050; Q9967

== ENCOUNTER 2017-05-22 11:08 | Emergency (ER) | payer MEDICAID ==
[2017-05-22 11:17] VITALS: BP 144/78
[2017-05-22] MEDS ORDERED: Metoclopramide 10 MG/2 ML SDV IVPUSH ONE (11:43)
[2017-05-22] MEDS ORDERED: Sodium Chloride 0.9% 10 ML Syringe FLUSH PRN (11:43)
[2017-05-22] MEDS ORDERED: Sodium Chloride 0.9% 300 ML IV ONE (11:46)
[2017-05-22] MEDS ORDERED: Sodium Chloride 0.9% 1,000 ML IV ONE (11:46)
--- NOTE | 2017-05-22 12:02 | EDM.PDOC ---
ED HPI GENERAL MEDICAL PROBLEM - General Chief Complaint: Gastrointestinal Problem Stated Complaint: Vomiting Time Seen by Provider: 05/22/17 11:30 Source of Information: Reports: Patient, RN Notes Reviewed History Limitations: Reports: No Limitations - History of Present Illness INITIAL COMMENTS - FREE TEXT/NARRATIVE: 51 year old female with history of liver cirrhosis presents to the ER today with complaints of persistent vomiting for the past 3 hours. She says she has felt nauseated for the past week but did not start vomiting until this morning at 0830. This is a chronic problem for her. She has been taking Zofran every 6 hours which was controlling her nausea until this morning. She denies abdominal pain, bloating, or diarrhea. She had a large bowel movement yesterday. She had a parecentsis performed 1 week ago and says they drained over 4 liters of fluid from her abdomen. She says she requires parecentesis every year to year and a half. She is awaiting a liver transplant. She sees a transplant specialist in [place] and is scheduled to fly out there next week. She was in the ER on 05/11 and was found to have an elevated lipase level. She was subsequently transferred to [place]. She says she was in [place] for 1 week before being discharged. She denies urinary symptoms but says she is being treated for a yeast infection. No fever or chills. - Related Data Allergies Allergy/AdvReac Type Severity Reaction Status Date / Time acetaminophen [From Vicodin] Allergy Lightheaded Verified 05/22/17 11:15 ness hydrocodone bitartrate Allergy Lightheaded Verified 05/22/17 11:15 [From Vicodin] ness Home Meds: Home Meds Furosemide [Lasix] 60 mg PO DAILY 09/14/16 [History] Spironolactone [Aldactone] 150 mg PO DAILY 09/14/16 [History] Ciprofloxacin [Ciprofloxacin HCl] 500 mg PO DAILY 05/02/17 [History] L. Acidophilus/Dig Enz Cmb 5 [Probiotic-Digestive Enzymes] 1 tab.chew PO DAILY 05/02/17 [History] Ondansetron [Zofran ODT] 8 mg PO DAILY PRN 05/02/17 [History] Amoxicillin/Potassium Clav [Augmentin 875-125 Tablet] 1 cap PO BID 05/22/17 [ History] HYDROmorphone [Dilaudid] 2 mg PO Q12H PRN 05/22/17 [History] Pantoprazole Sodium [Protonix] 40 mg PO DAILY 05/22/17 [History] diphenhydrAMINE [Benadryl] 25 mg PO Q6H PRN 05/22/17 [History] Past Medical History Cardiovascular History: Reports: Hypertension Other Gastrointestinal History: Cirrhosis?, Ascites Genitourinary History: Reports: Renal Calculus, Other (See Below) Other Genitourinary History: Cyst behind kidneys [employer] History: Reports: Psychiatric History: Reports: Anxiety, Depression Endocrine/Metabolic History: Reports: Diabetes, Gestational Hematologic History: 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 - Past Surgical History HEENT Surgical History: Reports: Tonsillectomy Female Surgical History: Reports: Section Social & Family History - Tobacco Use Smoking Status *Q: Never Smoker Second Hand Smoke Exposure: No - Caffeine Use Caffeine Use: Reports: None - Recreational Drug Use Recreational Drug Use: No - Living Situation & Occupation Living situation: Reports: Occupation: Unemployed ED ROS GENERAL - Review of Systems Review Of Systems: See Below Constitutional: Reports: No Symptoms. Denies: Fever, Chills, Diaphoresis Respiratory: Reports: No Symptoms. Denies: Shortness of Breath Cardiovascular: Reports: No Symptoms. Denies: Chest Pain GI/Abdominal: Reports: Nausea, Vomiting. Denies: Abdominal Pain, Black Stool, Bloody Stool, Constipation, Diarrhea, Distension : Reports: No Symptoms. Denies: Dysuria, Flank Pain, Frequency ED EXAM, GI/ABD - Physical Exam Exam: See Below Exam Limited By: No Limitations General Appearance: Alert, No Apparent Distress, Obese Respiratory/Chest: No Respiratory Distress, Lungs Clear, Normal Breath Sounds, No Accessory Muscle Use, Chest Non-Tender Cardiovascular: Normal Peripheral Pulses, No Edema, No Murmur, Tachycardia GI/Abdominal Exam: Normal Bowel Sounds, Soft, Non-Tender, No Organomegaly, No Distention, No Mass. No: Guarding, Rigid, Rebound Back Exam: Normal Inspection, Full Range of Motion. No: CVA Tenderness (L), CVA Tenderness (R) Neurological: Alert, Oriented, Normal Cognition Course - Vital Signs Last Recorded V/S: Last Vital Signs Temp 97.3 F 09/14/17 11:15 Pulse 116 H 05/22/17 11:15 Resp 20 05/22/17 11:15 BP 144/78 H 05/22/17 11:15 Pulse Ox 100 05/22/17 11:15 - Orders/Labs/Meds Orders: Active Orders 24 hr Category Date Time Status Peripheral IV Care [RC] . DIRECTED Care 05/22/17 11:43 Active Sodium Chloride 0.9% [Normal Saline] 1,000 ml Med 05/22/17 11:46 Active IV ONETIME Sodium Chloride 0.9% [Saline Flush] Med 05/22/17 11:43 Active 10 ml FLUSH ASDIRECTED PRN Peripheral IV Insertion Adult [OM.PC] Stat Oth 05/22/17 11:43 Ordered Medication Orders Sodium Chloride (Normal Saline) 1,000 mls @ 75 mls/hr IV ONETIME ONE Stop: 05/23/17 01:05 Last Admin: 05/22/17 12:59 Dose: 75 mls/hr Sodium Chloride (Saline Flush) 10 ml FLUSH ASDIRECTED PRN PRN Reason: Keep Vein Open Last Admin: 05/22/17 12:18 Dose: 10 ml Labs: Laboratory Tests 05/22/17 05/22/17 05/22/17 Range/Units 11:54 11:59 12:40 WBC 8.35 (3.98-10.04) K/mm3 RBC 3.29 L (3.98-5.22) M/mm3 Hgb 11.2 (11.2-15.7) gm/L Hct 32.3 L (34.1-44.9) % MCV 98.2 H (79.4-94.8) fl MCH 34.0 H (25.6-32.2) pg MCHC 34.7 (32.2-35.5) g/dl RDW Std Deviation 45.1 (36.4-46.3) fL Plt Count 95 L (182-369) K/mm3 MPV 12.2 (9.4-12.3) fl Neutrophils % (Manual) 73 H (40-60) % Band Neutrophils % 1 (0-10) % Lymphocytes % (Manual) 18 L (20-40) % Atypical Lymphs % 0 % Monocytes % (Manual) 8 (2-10) % Eosinophils % (Manual) 0 L (0.7-5.8) % Basophils % (Manual) 0 L (0.1-1.2) Platelet Estimate Decreased RBC Morph Comment Normal Sodium 132 L (136-145) mEq/L Potassium 4.7 (3.5-5.1) mEq/L Chloride 99 (98-107) mEq/L Carbon Dioxide 23 (21-32) mEq/L Anion Gap 14.7 (5-15) BUN 8 (7-18) mg/dL Creatinine 1.4 H (0.55-1.02) mg/dL Est Cr Clr Drug Dosing 36.28 mL/min Estimated GFR (MDRD) 40 (>60) mL/min BUN/Creatinine Ratio 5.7 L (14-18) Glucose 245 H (74-106) mg/dL Calcium 8.7 (8.5-10.1) mg/dL Total Bilirubin 4.3 H (0.2-1.0) mg/dL AST 77 H (15-37) U/L ALT 30 (14-59) U/L Alkaline Phosphatase 154 H (46-116) U/L Total Protein 7.0 (6.4-8.2) g/dl Albumin 2.5 L (3.4-5.0) g/dl Globulin 4.5 gm/dL Albumin/Globulin Ratio 0.6 L (1-2) Urine Color Yellow (Yellow) Urine Appearance Slt cloudy H (Clear) Urine pH 6.5 (5.0-8.0) Ur Specific [place] 1.025 (1.005-1.030) Urine Protein Trace H (Negative) Urine Glucose (UA) Negative (Negative) Urine Ketones Negative (Negative) Urine Occult Blood Trace-intact H (Negative) Urine Nitrite Negative (Negative) Urine Bilirubin Negative (Negative) Urine Urobilinogen 0.2 (0.2-1.0) Ur Leukocyte Esterase Negative (Negative) Urine RBC 0-5 (0-5) /hpf Urine WBC 5-10 H (0-5) /hpf Ur Epithelial Cells 5-10 H (0-5) /hpf Ur Squamous Epith Cells 5-10 H (0-5) /hpf Urine Bacteria Few (FEW) /hpf Hyaline Casts 10-20 H (0-5) /lpf Urine Mucus Few (FEW) /hpf Meds: Medications Generic Name Dose Route Start Last Admin Trade Name Jose PRN Reason Stop Dose Admin Sodium Chloride 1,000 mls @ 75 mls/hr 05/22/17 11:46 05/22/17 12:59 Normal Saline IV 05/23/17 01:05 75 mls/hr ONETIME ONE Administration Sodium Chloride 10 ml 05/22/17 11:43 05/22/17 12:18 Saline Flush FLUSH 10 ml ASDIRECTED PRN Administration Keep Vein Open Discontinued Medications Generic Name Dose Route Start Last Admin Trade Name Frewilli PRN Reason Stop Dose Admin Sodium Chloride 300 mls @ 999 mls/hr 05/22/17 11:46 05/22/17 12:19 Normal Saline IV 05/22/17 12:04 999 mls/hr ONETIME ONE Administration Metoclopramide HCl 7.5 mg 05/22/17 11:43 05/22/17 12:16 Reglan IVPUSH 05/22/17 11:44 7.5 mg ONETIME ONE Administration Ondansetron HCl Confirm 05/22/17 12:06 05/22/17 12:17 Zofran Odt Administered 05/22/17 12:07 Not Given Dose 4 mg .ROUTE .STK-MED ONE Ondansetron HCl 4 mg 05/22/17 12:15 05/22/17 12:10 Zofran Odt PO 05/22/17 12:16 4 mg ONETIME ONE Administration - Re-Assessments/Exams Free Text/Narrative Re-Assessment/Exam: CBC reveals normal WBC with no bandemia. CMP reveals Na 132, K 4.7, anion gap 14.7, creatnine 1.4, BUN 8, glucose 245, bilirubin 4.3, AST 77, ALT 30, and alk phos 154. Metabolic panel is stable when compared to recent labs. Lipase was not ordered as patient has no abdominal pain. She was given 4mg Zofran ODT and Reglan 7.5mg IV. She was given approximately 400ml of NS. She will be discharged home with instructions to f/u with her PCP next week. Educated on return precautions. Discharge instructions as documented. Departure - Departure Time of Disposition: 13:27 Disposition: Home, Self-Care 01 Condition: Good Clinical Impression: Nausea & vomiting Qualifiers: Vomiting type: unspecified Vomiting Intractability: non-intractable Qualified Code(s): R11.2 - Nausea with vomiting, unspecified Cirrhosis of liver Qualifiers: Hepatic cirrhosis type: unspecified hepatic cirrhosis Ascites presence: with ascites Qualified Code(s): K74.60 - Unspecified cirrhosis of liver - Discharge Information Referrals: Amanda Rodriguez DO [Primary Care Provider] - Forms: ED Department Discharge Additional Instructions: Follow-up with your primary provider next week for recheck Return to ER with any new or worsening symptoms Continue your Ondansetron every 6hours as needed for nausea. - My Orders Last 24 Hours: My Active Orders 05/22/17 11:43 Peripheral IV Care [RC] . DIRECTED Sodium Chloride 0.9% [Saline Flush] 10 ml FLUSH ASDIRECTED PRN Peripheral IV Insertion Adult [OM.PC] Stat 05/22/17 11:46 Sodium Chloride 0.9% [Normal Saline] 1,000 ml IV ONETIME - Assessment/Plan Last 24 Hours: My Active Orders 05/22/17 11:43 Peripheral IV Care [RC] . DIRECTED Sodium Chloride 0.9% [Saline Flush] 10 ml FLUSH ASDIRECTED PRN Peripheral IV Insertion Adult [OM.PC] Stat 05/22/17 11:46 Sodium Chloride 0.9% [Normal Saline] 1,000 ml IV ONETIME
[2017-05-22] MEDS ORDERED: Ondansetron 4 MG Tab.DIS ONE (12:06)
[2017-05-22] MEDS ORDERED: Ondansetron 4 MG Tab.DIS PO ONE (12:15)
== END 2017-05-22 13:45 | disposition home or self-care (01) ==
LOC: JD.ED 11:08
DX: K74.60 Unspecified cirrhosis of liver (principal); I10 Essential (primary) hypertension; F41.9 Anxiety disorder, unspecified; E11.9 Type 2 diabetes mellitus without complications; Z88.6 Allergy status to analgesic agent; Z87.442 Personal history of urinary calculi; Z88.8 Allergy status to other drugs, medicaments and biological substances; Z79.899 Other long term (current) drug therapy
CPT/HCPCS: 36415; 80053; 81001; 85025; 96361; 96374; 99284; A9270; J2765; J7040; J7050

== ENCOUNTER 2017-05-28 12:13 | Emergency (ER) | payer MEDICAID ==
[2017-05-28] MEDS ORDERED: diphenhydrAMINE 50 MG/ML SDV IM ONE (13:03)
[2017-05-28] MEDS ORDERED: Metoclopramide 10 MG/2 ML SDV IM ONE (13:03)
--- NOTE | 2017-05-28 13:09 | EDM.PDOC ---
ED HPI GENERAL MEDICAL PROBLEM - General Chief Complaint: Gastrointestinal Problem Stated Complaint: NAUSEA/VOMITING Time Seen by Provider: 05/28/17 12:51 Source of Information: Reports: Patient History Limitations: Reports: No Limitations - History of Present Illness INITIAL COMMENTS - FREE TEXT/NARRATIVE: Patient is a 51 year old female who presents to the ED complaining of nausea and vomiting. 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 She is on a liver transplant list. States her son came back as a match and will be giving part of his liver to his mother. This should take place in next 3-5 weeks. Patient states she has no abdominal pain but has been nauseated with poor appetite and intermittent dry heaving. She states she's had little to eat. Also notes that her bowel movements have been very hard, sporadic , with only little production of stool. Last BM was this morning. She has no fever, short of breath, chest pain, abdominal pain, dysuria, lightheadedness, dizziness. Of note patient has gallbladder that is full of stones. There is also a mass on her ovary with unclear etiology. 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 She was advised by her doctor in [place] that this may be an ongoing issue until the liver transplant take place. She did have a paracentesis approximately 2 weeks ago removing 4 L of fluid and Nino. Again patient has no abdominal pain. - Related Data Allergies Allergy/AdvReac Type Severity Reaction Status Date / Time acetaminophen [From Vicodin] Allergy Lightheaded Verified 05/28/17 12:24 ness hydrocodone bitartrate Allergy Lightheaded Verified 05/28/17 12:24 [From Vicodin] ness Home Meds: Home Meds Furosemide [Lasix] 60 mg PO DAILY 09/14/16 [History] Spironolactone [Aldactone] 150 mg PO DAILY 09/14/16 [History] Ciprofloxacin [Ciprofloxacin HCl] 500 mg PO DAILY 05/02/17 [History] Ondansetron [Zofran ODT] 4 mg PO DAILY PRN 05/02/17 [History] Amoxicillin/Potassium Clav [Augmentin 875-125 Tablet] 875 mg PO BID 05/22/17 [ History] HYDROmorphone [Dilaudid] 2 mg PO Q12H PRN 05/22/17 [History] Pantoprazole Sodium [Protonix] 40 mg PO DAILY 05/22/17 [History] diphenhydrAMINE [Benadryl] 25 mg PO Q6H PRN 05/22/17 [History] traMADol [Ultram] 50 mg PO Q6H PRN 05/28/17 [History] Past Medical History Cardiovascular History: Reports: Hypertension Other Gastrointestinal History: Cirrhosis?, Ascites Genitourinary History: Reports: Renal Calculus, Other (See Below) Other Genitourinary History: Cyst behind kidneys [employer]IST History: Reports: Psychiatric History: Reports: Anxiety, Depression Endocrine/Metabolic History: Reports: Diabetes, Gestational Hematologic History: 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 - Past Surgical History HEENT Surgical History: Reports: Tonsillectomy Female Surgical History: Reports: Section Social & Family History - Tobacco Use Smoking Status *Q: Never Smoker Second Hand Smoke Exposure: No - Caffeine Use Caffeine Use: Reports: None - Recreational Drug Use Recreational Drug Use: No - Living Situation & Occupation Living situation: Reports: Occupation: Unemployed ED ROS GENERAL - Review of Systems Review Of Systems: ROS reveals no pertinent complaints other than HPI. ED EXAM, GENERAL - Physical Exam Exam: See Below Exam Limited By: No Limitations General Appearance: Alert, WD/WN, No Apparent Distress Eye Exam: Bilateral Eye: Other (Jaundice) Ears: Hearing Grossly Normal Nose: Normal Inspection Throat/Mouth: Normal Voice, No Airway Compromise Neck: Normal Inspection, Supple Respiratory/Chest: No Respiratory Distress, Lungs Clear, Normal Breath Sounds, No Accessory Muscle Use Cardiovascular: Normal Peripheral Pulses, Regular Rate, Rhythm, No JVD, No Murmur Peripheral Pulses: 2+: Radial (L), Radial (R) GI/Abdominal: Normal Bowel Sounds, Soft, Non-Tender, No Organomegaly, Other ( Positive fluid wave present. Mild distention distention present. No tightness noted. No pain with palpation.) Back Exam: Normal Inspection Extremities: Normal Inspection, Normal Range of Motion, Non-Tender, No Pedal Edema, Normal Capillary Refill Neurological: Alert, Oriented, CN II-XII Intact, Normal Cognition, No Motor/ Sensory Deficits Psychiatric: Normal Affect, Normal Mood Skin Exam: Warm, Dry, Intact, No Rash Course - Vital Signs Last Recorded V/S: Last Vital Signs Temp 97.4 F 05/28/17 12:24 Pulse 96 05/28/17 16:00 Resp 16 05/28/17 16:00 BP 125/79 05/28/17 16:00 Pulse Ox 94 L 05/28/17 16:00 - Orders/Labs/Meds Labs: Laboratory Tests 05/28/17 05/28/17 05/28/17 Range/Units 13:15 13:40 13:40 WBC 10.18 H (3.98-10.04) K/mm3 RBC 3.42 L (3.98-5.22) M/mm3 Hgb 11.6 (11.2-15.7) gm/L Hct 33.3 L (34.1-44.9) % MCV 97.4 H (79.4-94.8) fl MCH 33.9 H (25.6-32.2) pg MCHC 34.8 (32.2-35.5) g/dl RDW Std Deviation 44.8 (36.4-46.3) fL Plt Count 54 L (182-369) K/mm3 MPV 10.6 (9.4-12.3) fl Neut % (Auto) 69.8 (34.0-71.1) % Lymph % (Auto) 16.7 L (19.3-51.7) % [place] % (Auto) 12.1 (4.7-12.5) % Eos % (Auto) 0.4 L (0.7-5.8) Baso % (Auto) 0.6 (0.1-1.2) % Neut # (Auto) 7.11 H (1.56-6.13) K/mm3 Lymph # (Auto) 1.70 (1.18-3.74) K/mm3 [place] # (Auto) 1.23 H (0.24-0.36) K/mm3 Eos # (Auto) 0.04 (0.04-0.36) K/mm3 Baso # (Auto) 0.06 (0.01-0.08) K/mm3 Manual Slide Review Abnormal smear PT (8.0-13.0) SECONDS INR Sodium 130 L (136-145) mEq/L Potassium 3.9 (3.5-5.1) mEq/L Chloride 97 L (98-107) mEq/L Carbon Dioxide 23 (21-32) mEq/L Anion Gap 13.9 (5-15) BUN 10 (7-18) mg/dL Creatinine 1.3 H (0.55-1.02) mg/dL Est Cr Clr Drug Dosing TNP Estimated GFR (MDRD) 43 (>60) mL/min BUN/Creatinine Ratio 7.7 L (14-18) Glucose 154 H (74-106) mg/dL Calcium 8.8 (8.5-10.1) mg/dL Total Bilirubin 5.0 H (0.2-1.0) mg/dL AST 63 H (15-37) U/L ALT 24 (14-59) U/L Alkaline Phosphatase 173 H (46-116) U/L Total Protein 7.0 (6.4-8.2) g/dl Albumin 2.3 L (3.4-5.0) g/dl Globulin 4.7 gm/dL Albumin/Globulin Ratio 0.5 L (1-2) Urine Color Wilian H (Yellow) Urine Appearance Clear (Clear) Urine pH 5.0 (5.0-8.0) Ur Specific [place] > or = 1.030 (1.005-1.030) Urine Protein 1+ H (Negative) Urine Glucose (UA) Negative (Negative) Urine Ketones Trace H (Negative) Urine Occult Blood Trace-lysed H (Negative) Urine Nitrite Negative (Negative) Urine Bilirubin 1+ H (Negative) Urine Urobilinogen 0.2 (0.2-1.0) Ur Leukocyte Esterase Negative (Negative) Urine RBC 5-10 H (0-5) /hpf Urine WBC 20-30 H (0-5) /hpf Ur Epithelial Cells 10-20 H (0-5) /hpf Urine Bacteria Few (FEW) /hpf Hyaline Casts 5-10 H (0-5) /lpf Urine Mucus Many H (FEW) /hpf Urine Yeast Moderate H (NOT SEEN) 05/28/17 Range/Units 13:40 WBC (3.98-10.04) K/mm3 RBC (3.98-5.22) M/mm3 Hgb (11.2-15.7) gm/L Hct (34.1-44.9) % MCV (79.4-94.8) fl MCH (25.6-32.2) pg MCHC (32.2-35.5) g/dl RDW Std Deviation (36.4-46.3) fL Plt Count (182-369) K/mm3 MPV (9.4-12.3) fl Neut % (Auto) (34.0-71.1) % Lymph % (Auto) (19.3-51.7) % [place] % (Auto) (4.7-12.5) % Eos % (Auto) (0.7-5.8) Baso % (Auto) (0.1-1.2) % Neut # (Auto) (1.56-6.13) K/mm3 Lymph # (Auto) (1.18-3.74) K/mm3 [place] # (Auto) (0.24-0.36) K/mm3 Eos # (Auto) (0.04-0.36) K/mm3 Baso # (Auto) (0.01-0.08) K/mm3 Manual Slide Review PT 20.4 H (8.0-13.0) SECONDS INR 1.80 Sodium (136-145) mEq/L Potassium (3.5-5.1) mEq/L Chloride (98-107) mEq/L Carbon Dioxide (21-32) mEq/L Anion Gap (5-15) BUN (7-18) mg/dL Creatinine (0.55-1.02) mg/dL Est Cr Clr Drug Dosing Estimated GFR (MDRD) (>60) mL/min BUN/Creatinine Ratio (14-18) Glucose (74-106) mg/dL Calcium (8.5-10.1) mg/dL Total Bilirubin (0.2-1.0) mg/dL AST (15-37) U/L ALT (14-59) U/L Alkaline Phosphatase (46-116) U/L Total Protein (6.4-8.2) g/dl Albumin (3.4-5.0) g/dl Globulin gm/dL Albumin/Globulin Ratio (1-2) Urine Color (Yellow) Urine Appearance (Clear) Urine pH (5.0-8.0) Ur Specific [place] (1.005-1.030) Urine Protein (Negative) Urine Glucose (UA) (Negative) Urine Ketones (Negative) Urine Occult Blood (Negative) Urine Nitrite (Negative) Urine Bilirubin (Negative) Urine Urobilinogen (0.2-1.0) Ur Leukocyte Esterase (Negative) Urine RBC (0-5) /hpf Urine WBC (0-5) /hpf Ur Epithelial Cells (0-5) /hpf Urine Bacteria (FEW) /hpf Hyaline Casts (0-5) /lpf Urine Mucus (FEW) /hpf Urine Yeast (NOT SEEN) Meds: Medications Discontinued Medications Generic Name Dose Route Start Last Admin Trade Name Jose PRN Reason Stop Dose Admin Diphenhydramine HCl 25 mg 05/28/17 13:03 05/28/17 13:40 Benadryl IM 05/28/17 13:04 25 mg ONETIME ONE Administration Metoclopramide HCl 7.5 mg 05/28/17 13:03 05/28/17 13:38 Reglan IM 05/28/17 13:04 7.5 mg ONETIME ONE Administration - Re-Assessments/Exams Free Text/Narrative Re-Assessment/Exam: Will obtain CBC, chem 14, UA, and also two-view of the abdomen x-ray. No IV required at this time. Patient states the reglan worked with previous E.D. admission. Thus ordered reglan 7.5mg IM and benadryl 25mg IM. 05/28/17 13:22, X-ray reveals nonspecific air in stool pattern. Final interpretation is pending. Reviewed with Dr. Laboy. 05/28/17 14:20 5 Final interpretation of x-ray of the abdomen revealed probable ascites. Nothing acute is seen on two-view abdominal x-ray. 05/28/17 15:51 Labs reviewed: White blood cell count 10.18, hemoglobin 11.6, platelet counts 54, sodium 1:30, potassium 3.9, AG 13.8, creatinine 1.3, glucose 154, platelet bilirubin 5.0, AST 63, ALT 24, and alk phosphatase 173. UA revealed wilian color, protein one plus, trace ketones, occult blood trace, bilirubin 1+, nitrates negative, leukocyte esterase negative, urine rbc's 5-10, urine wbc's 20-30, urine epithelial cells 10-20, urine bacteria few, hyaline casts 5-10, urine mucous many, and urine yeast moderate. Urine culture obtained. Appears UA was contaminated. 05/28/17 16:21 Reviewed labs with patient. Per patient they are all about normal for her. Nausea has subsided with the above therapies. She is ready to be discharged home. We'll not provide any additional medications for nausea. Phenergan and Benadryl will cause thrombocytopenia as well as serious adverse side effects. Her platelets 54 which patient states fluctuates up and down. We' ll have her take Zofran 800 mg every 8 hours to see if this works. Zofran does not cause thrombocytopenia. Departure - Departure Time of Disposition: 16:26 Disposition: Home, Self-Care 01 Condition: Good Clinical Impression: Thrombocytopenia, Nausea, Vomiting Cirrhosis of liver Qualifiers: Hepatic cirrhosis type: unspecified hepatic cirrhosis Ascites presence: with ascites Qualified Code(s): K74.60 - Unspecified cirrhosis of liver Ascites Qualifiers: Ascites type: other type Qualified Code(s): R18.8 - Other ascites - Discharge Information Instructions: Nausea, Adult, Cirrhosis Referrals: Amanda Rodriguez, [Primary Care Provider] - Forms: ED Department Discharge Additional Instructions: Continue taking Zofran 2 tabs every 8 hours for nausea. Push the fluids. Eat a balanced diet. See her PCP this week for reevaluation if nausea does not subside. Close follow-up with routine labs should be obtained to ensure platelets are increasing and not decreasing. See your PCP the end of this week or first part of next week. Will not start you on Phenergan gel with risk of adverse side effect causing thrombocytopenia. Your platelets was 54. I do not know your meld score at this point since INR was not initially ordered. Please call the ED at [phone] and 2 hours to have the results provided to you. Return to ED for any new or worsening symptoms.
--- NOTE | 2017-05-28 14:17 | CR ---
Abdomen: Supine and upright views of the abdomen were obtained. Comparison: No prior abdominal x-ray, previous CT abdomen and pelvis exam of 05/11/17 is available. Findings: Bowel gas pattern appears within normal limits. Haziness along the lateral abdomen and within the pelvis most likely represents ascites as seen on recent CT exam. No free air is seen on the upright view. No abnormal calcifications are seen. Bony structures are within normal limits for the patient's age. Impression: 1. Probable ascites. 2. Nothing acute is seen on two-view abdominal x-ray. Diagnostic code #2
[2017-05-28 17:19] VITALS: BP 125/79
== END 2017-05-28 16:50 | disposition home or self-care (01) ==
LOC: JD.ED 12:13
DX: K74.60 Unspecified cirrhosis of liver (principal); R18.8 Other ascites; D69.6 Thrombocytopenia, unspecified; I10 Essential (primary) hypertension; F32.9 Major depressive disorder, single episode, unspecified; Z87.442 Personal history of urinary calculi; Z98.890 Other specified postprocedural states; Z79.2 Long term (current) use of antibiotics; Z79.899 Other long term (current) drug therapy; Z88.6 Allergy status to analgesic agent; Z88.5 Allergy status to narcotic agent
CPT/HCPCS: 36415; 74020; 80053; 81001; 85025; 85610; 87086; 96372; 99284; J1200; J2765; 99283

== ENCOUNTER 2020-08-16 15:20 | Emergency (ER) | payer MEDICAID, OTHER ==
[2020-08-16 15:41] VITALS: BP 141/93; PULSE 83
[2020-08-16] MEDS ORDERED: Sodium Chloride 0.9% 10 ML Syringe FLUSH PRN (15:56)
[2020-08-16] MEDS ORDERED: Sodium Chloride 0.9% 1,000 ML IV STA (15:58)
[2020-08-16] MEDS ORDERED: FLU VACC QS2020-21(6MOS UP)/PF 60 MCG/0.5 ML SYRINGE IM ONE (16:00)
--- NOTE | 2020-08-16 16:41 | EDM.PDOC ---
ED HPI GENERAL MEDICAL PROBLEM - General Chief Complaint: Diabetic Complaint Stated Complaint: WEAK/NAUSEA/BLURRED VISION Time Seen by Provider: 08/16/20 15:37 Source of Information: Reports: Patient, RN Notes Reviewed History Limitations: Reports: No Limitations - History of Present Illness INITIAL COMMENTS - FREE TEXT/NARRATIVE: Patient is a 54-year-old female presenting to the emergency department with complaints of high blood sugars, weakness, nausea, and intermittently blurred vision. She has had these problems over the course of the last few weeks. She is appear to help take care of her grandson who is currently hospitalized in [place]. She states that elevated blood sugars are a new problem for her. She has a history of liver transplant 3 years ago. She is from [place]. States that her primary care provider in [place] and orders up to a private lab in [place] to have her routine blood work done. She received a call on Friday stating that her blood sugars were quite high. She visited with her primary care provider in [place] and he recommended that she come to the emergency department to "get put on something to bring the blood sugars down until she can see him ". She denies a previous diagnosis of diabetes, however she is currently taking Metformin 1000 mg twice daily. She is unsure if this was for high blood sugars or for weight loss. States of her most recent liver work-up did show that she has a fatty liver, but otherwise was normal, therefore they have encouraged her to lose weight. Denies any fever, chills, chest pain, shortness of breath, vomiting. States she does have chronic diarrhea likely due to her antirejection meds as well as Metformin. She also has a reduced taste and smell, but states it is not completely gone. She also complains of chronic vaginal itching for approximately last week. She has had no burning with urination. States she does have a history of yeast infections, however she has not had one since before her liver transplant. - Related Data Allergies Allergy/AdvReac Type Severity Reaction Status Date / Time levofloxacin [From Levaquin] Allergy Hives Verified 08/16/20 15:42 piperacillin [From Zosyn] Allergy Hives Verified 08/16/20 15:42 tazobactam [From Zosyn] Allergy Hives Verified 08/16/20 15:42 acetaminophen [From Vicodin] AdvReac Lightheaded Verified 08/16/20 15:46 ness hydrocodone bitartrate AdvReac Lightheaded Verified 08/16/20 15:46 [From Vicodin] ness Home Meds: Home Meds Furosemide [Lasix] 60 mg PO DAILY 09/14/16 [History] Spironolactone [Aldactone] 150 mg PO DAILY 09/14/16 [History] Ciprofloxacin [Ciprofloxacin HCl] 500 mg PO DAILY 05/02/17 [History] Ondansetron [Zofran ODT] 4 mg PO DAILY PRN 05/02/17 [History] Amoxicillin/Potassium Clav [Augmentin 875-125 Tablet] 875 mg PO BID 05/22/17 [History] HYDROmorphone [Dilaudid] 2 mg PO Q12H PRN 05/22/17 [History] Pantoprazole Sodium [Protonix] 40 mg PO DAILY 05/22/17 [History] diphenhydrAMINE [Benadryl] 25 mg PO Q6H PRN 05/22/17 [History] traMADol [Ultram] 50 mg PO Q6H PRN 05/28/17 [History] Past Medical History Cardiovascular History: Reports: Hypertension Other Gastrointestinal History: Liver transplants in 2017 Genitourinary History: Reports: Renal Calculus, Other (See Below) Other Genitourinary History: Cyst behind kidneys NOTCHER History: Reports: Psychiatric History: Reports: Anxiety, Depression Endocrine/Metabolic History: Reports: Diabetes, Gestational Hematologic History: 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 - Past Surgical History HEENT Surgical History: Reports: Tonsillectomy GI Surgical History: Reports: Hernia Repair/Other Female Surgical History: Reports: Section Social & Family History - Tobacco Use Tobacco Use Status *Q: Never Tobacco User Second Hand Smoke Exposure: No - Caffeine Use Caffeine Use: Reports: None - Recreational Drug Use Recreational Drug Use: No - Living Situation & Occupation Living situation: Reports: Occupation: Unemployed ED ROS GENERAL - Review of Systems Review Of Systems: See Below Constitutional: Reports: Fatigue. Denies: Fever, Chills, Weakness, Weight Loss HEENT: Reports: No Symptoms Respiratory: Reports: No Symptoms. Denies: Shortness of Breath, Cough Cardiovascular: Reports: No Symptoms. Denies: Chest Pain Endocrine: Reports: Fatigue, High Glucose. Denies: Polydypsia, Polyuria GI/Abdominal: Reports: Nausea. Denies: Abdominal Pain, Diarrhea, Vomiting : Reports: Other (perineal itching) Musculoskeletal: Reports: No Symptoms Skin: Reports: No Symptoms Neurological: Reports: No Symptoms Psychiatric: Reports: No Symptoms Hematologic/Lymphatic: Reports: No Symptoms Immunologic: Reports: No Symptoms ED EXAM GENERAL NO PERIP PULSE - Physical Exam Exam: See Below Exam Limited By: No Limitations General Appearance: Alert, WD/WN, No Apparent Distress Eye Exam: Bilateral Eye: PERRL Head: Atraumatic, Normocephalic Neck: Normal Inspection, Supple, Non-Tender, Full Range of Motion Respiratory/Chest: No Respiratory Distress, Lungs Clear, Normal Breath Sounds, No Accessory Muscle Use, Chest Non-Tender Cardiovascular: Normal Peripheral Pulses, Regular Rate, Rhythm, No Edema, No Gallop, No JVD, No Murmur, No Rub GI/Abdominal: Normal Bowel Sounds, Soft, Non-Tender, No Organomegaly, No Distention, No Abnormal Bruit, No Mass Neurological: Alert, Oriented, CN II-XII Intact, Normal Cognition, Normal Gait, Normal Reflexes, No Motor/Sensory Deficits Psychiatric: Normal Affect, Normal Mood Skin Exam: Warm, Dry, Intact, Normal Color, No Rash Course - Vital Signs Last Recorded V/S: Last Vital Signs Temp 97.6 F 08/16/20 15:36 Pulse 83 08/16/20 15:36 Resp 18 08/16/20 15:36 BP 141/93 H 08/16/20 15:36 Pulse Ox 95 08/16/20 15:36 - Orders/Labs/Meds Labs: Laboratory Tests 08/16/20 08/16/20 08/16/20 Range/Units 16:25 16:25 16:25 WBC 6.26 (3.98-10.04) K/mm3 RBC 4.52 (3.98-5.22) M/mm3 Hgb 13.3 D (11.2-15.7) gm/dl Hct 40.4 (34.1-44.9) % MCV 89.4 D (79.4-94.8) fl MCH 29.4 (25.6-32.2) pg MCHC 32.9 (32.2-35.5) g/dl RDW Std Deviation 41.2 (36.4-46.3) fL Plt Count 103 L (182-369) K/mm3 MPV 12.4 H (9.4-12.3) fl Neut % (Auto) 71.6 H (34.0-71.1) % Lymph % (Auto) 17.9 L (19.3-51.7) % [place] % (Auto) 8.3 (4.7-12.5) % Eos % (Auto) 1.4 (0.7-5.8) Baso % (Auto) 0.3 (0.1-1.2) % Neut # (Auto) 4.48 (1.56-6.13) K/mm3 Lymph # (Auto) 1.12 L (1.18-3.74) K/mm3 [place] # (Auto) 0.52 H (0.24-0.36) K/mm3 Eos # (Auto) 0.09 (0.04-0.36) K/mm3 Baso # (Auto) 0.02 (0.01-0.08) K/mm3 Sodium 130 L (136-145) mEq/L Potassium 4.8 (3.5-5.1) mEq/L Chloride 99 (98-107) mEq/L Carbon Dioxide 21 (21-32) mEq/L Anion Gap 14.8 (5-15) BUN 21 H (7-18) mg/dL Creatinine 1.5 H (0.55-1.02) mg/dL Est Cr Clr Drug Dosing 32.73 mL/min Estimated GFR (MDRD) 36 (>60) mL/min BUN/Creatinine Ratio 14.0 (14-18) Glucose 499 H (74-106) mg/dL POC Glucose (70-105) mg/dL Calcium 9.9 (8.5-10.1) mg/dL Total Bilirubin 0.6 (0.2-1.0) mg/dL AST 198 H (15-37) U/L ALT 272 H (14-59) U/L Alkaline Phosphatase 135 H (46-116) U/L C-Reactive Protein 0.6 (<1.0) mg/dL Total Protein 7.0 (6.4-8.2) g/dl Albumin 3.7 (3.4-5.0) g/dl Globulin 3.3 gm/dL Albumin/Globulin Ratio 1.1 (1-2) Urine Color (Yellow) Urine Appearance (Clear) Urine pH (5.0-8.0) Ur Specific [place] (1.005-1.030) Urine Protein (Negative) Urine Glucose (UA) (Negative) Urine Ketones (Negative) Urine Occult Blood (Negative) Urine Nitrite (Negative) Urine Bilirubin (Negative) Urine Urobilinogen (0.2-1.0) Ur Leukocyte Esterase (Negative) Urine RBC (0-5) /hpf Urine WBC (0-5) /hpf Ur Squamous Epith Cells (0-5) /hpf Urine Bacteria (FEW) /hpf Urine Mucus (FEW) /hpf Ketones 1.05 (0.0-0.3) mM 08/16/20 08/16/20 Range/Units 17:30 18:37 WBC (3.98-10.04) K/mm3 RBC (3.98-5.22) M/mm3 Hgb (11.2-15.7) gm/dl Hct (34.1-44.9) % MCV (79.4-94.8) fl MCH (25.6-32.2) pg MCHC (32.2-35.5) g/dl RDW Std Deviation (36.4-46.3) fL Plt Count (182-369) K/mm3 MPV (9.4-12.3) fl Neut % (Auto) (34.0-71.1) % Lymph % (Auto) (19.3-51.7) % [place] % (Auto) (4.7-12.5) % Eos % (Auto) (0.7-5.8) Baso % (Auto) (0.1-1.2) % Neut # (Auto) (1.56-6.13) K/mm3 Lymph # (Auto) (1.18-3.74) K/mm3 [place] # (Auto) (0.24-0.36) K/mm3 Eos # (Auto) (0.04-0.36) K/mm3 Baso # (Auto) (0.01-0.08) K/mm3 Sodium (136-145) mEq/L Potassium (3.5-5.1) mEq/L Chloride (98-107) mEq/L Carbon Dioxide (21-32) mEq/L Anion Gap (5-15) BUN (7-18) mg/dL Creatinine (0.55-1.02) mg/dL Est Cr Clr Drug Dosing mL/min Estimated GFR (MDRD) (>60) mL/min BUN/Creatinine Ratio (14-18) Glucose (74-106) mg/dL POC Glucose 394 H (70-105) mg/dL Calcium (8.5-10.1) mg/dL Total Bilirubin (0.2-1.0) mg/dL AST (15-37) U/L ALT (14-59) U/L Alkaline Phosphatase (46-116) U/L C-Reactive Protein (<1.0) mg/dL Total Protein (6.4-8.2) g/dl Albumin (3.4-5.0) g/dl Globulin gm/dL Albumin/Globulin Ratio (1-2) Urine Color Yellow (Yellow) Urine Appearance Clear (Clear) Urine pH 6.0 (5.0-8.0) Ur Specific [place] 1.015 (1.005-1.030) Urine Protein Negative (Negative) Urine Glucose (UA) 2+ H (Negative) Urine Ketones 1+ H (Negative) Urine Occult Blood Negative (Negative) Urine Nitrite Negative (Negative) Urine Bilirubin Negative (Negative) Urine Urobilinogen 0.2 (0.2-1.0) Ur Leukocyte Esterase Negative (Negative) Urine RBC 0-5 (0-5) /hpf Urine WBC 0-5 (0-5) /hpf Ur Squamous Epith Cells 0-5 (0-5) /hpf Urine Bacteria Few (FEW) /hpf Urine Mucus Not seen (FEW) /hpf Ketones (0.0-0.3) mM Meds: Medications Discontinued Medications Generic Name Dose Route Start Last Admin Trade Name Freq PRN Reason Stop Dose Admin Sodium Chloride 1,000 mls @ 999 mls/hr 08/16/20 15:58 08/16/20 16:31 Normal Saline IV 08/16/20 16:58 150 mls/hr NOW STA Administration Influenza Virus Vaccine 60 mcg 08/16/20 16:00 08/16/20 16:25 Fluzone Quad 2391-1819 Syringe IM 08/16/20 16:01 60 mcg .ONCE ONE Administration Insulin Human Lispro 8 unit 08/16/20 17:22 08/16/20 17:34 Humalog SUBCUT 08/16/20 17:23 8 unit ONETIME ONE Administration Insulin Human Lispro 5 unit 08/16/20 18:58 08/16/20 19:11 Humalog SUBCUT 08/16/20 18:59 5 units ONETIME ONE Administration Insulin Human Lispro 100 unit 08/16/20 17:30 Humalog .ROUTE 08/16/20 17:31 .STK-MED ONE Sodium Chloride 10 ml 08/16/20 15:56 08/16/20 16:31 Saline Flush FLUSH 10 ml ASDIRECTED PRN Administration Keep Vein Open - Re-Assessments/Exams Free Text/Narrative Re-Assessment/Exam: 08/16/20 1725 Hematology was significant for sodium low at 130, BUN 21, creatinine 1.5, glucose 499, AST 198, ALT 272, alkaline phosphatase 135. Urinalysis was negative for infection. Wet prep was negative for yeast or bacterial vaginosis. Ketones 1.05. Patient is not acidotic, therefore, I have ordered IV fluids increased to a bolus as well as Humalog 8 units subcutaneous now. 08/16/20 18:47 Repeat blood glucose was 394. Patient states that her vision has cleared up. We will give an additional 6 units of subcutaneous Humalog. I will write prescription for Lantus 30 units subcutaneous q. bedtime, well as lancets, test strips, needles. Patient states that she is returning back to [place] the weekend after next and will follow up with her primary care provider once they are. I will provide with paper scripts as she will be driving back to [place] tomorrow and feels that a [facility] or [facility] pharmacy will be better covered with her insu parker. Recommend checking her blood glucose 3-4 times daily and keep a log of the readings for her primary care provider. Discharge instructions as documented. Departure - Departure Time of Disposition: 18:53 Disposition: Home, Self-Care 01 Condition: Good Clinical Impression: Nausea Diabetes type 2, uncontrolled Qualifiers: Glycemic state: with hyperglycemia Qualified Code(s): E11.65 - Type 2 diabetes mellitus with hyperglycemia - Discharge Information *PRESCRIPTION DRUG MONITORING PROGRAM REVIEWED*: No *COPY OF PRESCRIPTION DRUG MONITORING REPORT IN PATIENT ANDRES: No Instructions: Type 2 Diabetes Mellitus, Diagnosis, Adult, [id number] Referrals: PCP,Not In Area [Primary Care Provider] - Forms: ED Department Discharge Additional Instructions: You were seen in the emergency department today for elevated blood sugars nausea, and blurry vision. Recommend set of blood work, urinalysis, and a wet prep. Results of your work-up showed a glucose of 499. While in the emergency department, you received a liter of IV fluids, as well as a total of 13 units of subcutaneous insulin. You have been started on Lantus, which is a long-acting insulin, 30 units every bedtime. Recommend that you check your blood sugar first thing in the morning before eating, 2 hours after a meal, and before bed, each day. Keep a log of these readings to bring to your appointment with your primary care provider. A copy of your lab work is included in this packet, therefore you may bring it with you to the appointment as well. Recommend that you continue to watch your carbohydrate intake. If you should develop hypoglycemia (low blood sugar) which often presents with dizziness, sweating, and confusion, you should consume sugar and seek treatment at the nearest medical facility. Sepsis Event Note (ED) - Evaluation Sepsis Screening Result: No Definite Risk
== END 2020-08-16 19:18 | disposition home or self-care (01) ==
LOC: JD.ED 15:20
DX: E11.65 Type 2 diabetes mellitus with hyperglycemia (principal); I10 Essential (primary) hypertension; Z23 Encounter for immunization; Z88.0 Allergy status to penicillin; Z88.5 Allergy status to narcotic agent; Z88.1 Allergy status to other antibiotic agents; Z79.899 Other long term (current) drug therapy
CPT/HCPCS: 36415; 80053; 81001; 82009; 82962; 85025; 86140; 87210; 87808; 90471; 90686; 99284; J1815; J7030; G0008